=== PATIENT | female | born 1945 | race Asian ===

== ENCOUNTER 2020-07-29 10:04 | Day surgery (SDC) | payer MEDICARE, BC ==
[2020-07-22 15:19] LABS: BASOPHILS % (AUTO) 0.8 % (0-1); EOSINOPHILS # (AUTO) 0.1 X10'3 (0-0.9); EOSINOPHILS % (AUTO) 1.6 % (0-6); LYMPHOCYTES # (AUTO) 2.5 X10'3 (1.1-4.8); LYMPHOCYTES % (AUTO) 45.3 % (21-51); MEAN CORPUSCULAR HEMOGLOBIN 31.2 PG (27.0-31.0); MEAN CORPUSCULAR HGB CONC 33.4 g/dL (33.0-36.5); MEAN CORPUSCULAR VOLUME 93.4 FL (78-98); MONOCYTES # (AUTO) 0.5 X10'3 (0-0.9); MONOCYTES % (AUTO) 8.7 % (2-12); NEUTROPHILS # (AUTO) 2.4 X10'3 (1.8-7.7); NEUTROPHILS % (AUTO) 43.6 % (42-75); PRE OP HEMATOCRIT 39.2 % (35.0-45.0); PRE OP HEMOGLOBIN 13.1 g/dL (12.0-16.0); PRE OP PLATELET COUNT 239 X10'3 (140-440); RED CELL DISTRIBUTION WIDTH 13.4 % (11.5-14.5)
[2020-07-22 15:29] LABS: CLARITY,URINE CLEAR (Clear); COLOR,URINE YELLOW (Yellow); GLUCOSE, URINE NEGATIVE (Neg); KETONES,URINE NEGATIVE (Neg); LEUKOCYTE ESTERASE ,URINE NEGATIVE (Neg); NITRITES, URINE NEGATIVE (Neg); OCCULT BLOOD,URINE TRACE-INTACT (Neg); PROTEIN,URINE NEGATIVE (Neg)
[2020-07-22 15:30] LABS: UA COLLECTION TYPE NON-SPECIFIED
[2020-07-22 15:34] LABS: ALBUMIN 3.7 G/DL (3.4-5.0); ALBUMIN/GLOBULIN RATIO 1.1 (1.1-1.5); ALKALINE PHOSPHATASE 59 IU/L (46-116); BACTERIA,URINE NONE SEEN /HPF (Neg); BLOOD UREA NITROGEN 14 MG/DL (7-18); BUN/CREATININE RATIO 21.9 (6.6-38.0); CALCIUM 8.7 MG/DL (8.5-10.1); CHLORIDE 108 MMOL/L (99-107); CREATININE 0.64 MG/DL (0.40-0.90); MUCUS STRANDS NONE SEEN /LPF (Neg); PRE OP ALT 23 U/L (30-65); PRE OP ANION GAP 3 (8-16); PRE OP AST 21 U/L (10-37); PRE OP BILIRUB, TOTAL 0.7 MG/DL (0.0-1.0); PRE OP GLUCOSE 87 MG/DL (70-104); PRE OP SODIUM 144 MMOL/L (135-145); RBC,URINE 0-2 /HPF (0-2); SQUAMOUS EPITHELIAL CELL,UR FEW /LPF (FEW); TOTAL CARBON DIOXIDE 33.4 MMOL/L (24-32); TOTAL PROTEIN 7.2 G/DL (6.4-8.2); WBC,URINE NONE SEEN /HPF (0-4); eGFR 90 ML/MIN
[2020-07-29] VITALS (8 sets, daily range): BP systolic 134–157; BP diastolic 69–86
[~2020-07-29] VITALS: Ht 142.2 cm; Wt 41.0 kg
[~2020-07-29 10:04] MED LIST: [UNRECOGNIZED DRUG - CODE] PO; cefazolin/dext.iso 2gm/100ml IV ONE; famotidine 20mg tablet PO ONE; ringers solution, lacted 1,000 ML IV SCH
[2020-07-29] MEDS ORDERED: bacitracin 15gm ointment TP ONE (11:48)
[2020-07-29] MEDS ORDERED: sevoflurane 250ml liquid IH ONE (12:43)
[2020-07-29] MEDS ORDERED: fentaNYL/PF 50MCG/1 ML 2ML syringe ONE (12:43)
[2020-07-29] MEDS ORDERED: propofol inj 20 ML IV ONE (12:44)
[2020-07-29] MEDS ORDERED: midazolam 1 mg/ML 2ml injection ONE (12:44)
[2020-07-29] MEDS ORDERED: morphine 2 MG/ML inj. syringe IV PRN (13:20)
[2020-07-29] MEDS ORDERED: ondansetron/PF 4mg/2ml inj IV PRN (13:20)
[2020-07-29] MEDS ORDERED: proCHLORperazine 10 MG/2 ml inj IV PRN (13:20)
[2020-07-29] MEDS ORDERED: morphine 4 MG/ML inj SYRINge IV PRN (13:20)
[2020-07-29] MEDS ORDERED: ringers solution, lacted 1,000 ML IV SCH (13:20)
[2020-07-29] MEDS ORDERED: meperidine/PF 25mg/ml syringe IV PRN ×3 (13:20)
[2020-07-29] MEDS ORDERED: ROPIVAcaine 0.5% (5mg/ml) 30ml vial ONE (13:21)
[2020-07-29] MEDS ORDERED: BUPIVAcaine/PF 2.5 mg/ml (0.25%) 30ml vial ONE (13:22)
--- NOTE | 2020-07-29 14:05 | NUR ---
Received from OR via , accompanied by Anesthesiologist DR PELLETIER and report given by Anesthesiolgist. AWAKENS TO VOICE. VITALS STABLE. DRESSING DI. FIDENCIO PAIN. TOES WARM AND PINK. SURGICAL BOOT TO RT FOOT.
--- NOTE | 2020-07-29 15:15 | NUR ---
AWAKE AND ORIENTED. VITALS STABLE. DRESSING WITH DIME SIZED RED SPOT. FIDENCIO PAIN. HOME WITH HER SPOUSE AT THIS TIME.
== END 2020-07-29 15:15 | disposition home or self-care (01) ==
LOC: PRE-OP 10:04 → PAS 15:15
PROVIDERS: ATTEND Podiatrist Foot & Ankle Surgery
DX: M20.21 Hallux rigidus, right foot (principal); M19.071 Primary osteoarthritis, right ankle and foot; M20.11 Hallux valgus (acquired), right foot; G47.30 Sleep apnea, unspecified; Z87.891 Personal history of nicotine dependence; Z98.890 Other specified postprocedural states; Z85.51 Personal history of malignant neoplasm of bladder; Z79.01 Long term (current) use of anticoagulants; Z79.899 Other long term (current) drug therapy
CPT/HCPCS: 28750; 36415; 73620; 80053; 81001; 82948; 85025; 93005; A6223; C1713; J2250; J2704; J3010; J3490; 76000; A4215; A4618; A6449; A7000; J2795; J7120